=== PATIENT | female | born 1995 | race Caucasian/White ===

== ENCOUNTER 2023-07-25 19:30 | Emergency (ER) | payer OTHER ==
[2023-07-25 19:35] VITALS: TEMP 97.2
[2023-07-25 20:19] VITALS: BP 113/79; RESP 18
[2023-07-25] MEDS ORDERED: TORAdol 30 mg Injection IM ONE (20:22)
[2023-07-25] MEDS ORDERED: Vibramycin 100 MG PO ONE (20:23)
[2023-07-25] MEDS ORDERED: TORAdol 30 mg Injection ONE (20:26)
[2023-07-25] MEDS ORDERED: Vibramycin 100 MG ONE (20:26)
--- NOTE | 2023-07-25 20:29 | ERPHSYRPT ---
- History of Present Illness Source: patient Exam Limitations: no limitations Patient Subjective Stated Complaint: pain to rt armit, feels like a knot there Triage Nursing Assessment: pt ambulated into ER without diff. Pt alert and oriented x4, pt c/o rt armpit pain which began on 07/21/23. Pt has a hard knot area under the rt armpit, Appears to be quarter sized, under the skin, no drainage noted. Physician History: 28 yo WF w R axillary mass x 1 wk. Pain is moderate. She denies fever/pus/injury and has never had a similar lesion. Breast mass/cough/coryza/ST are all denied. Timing/Duration: other (1 week) Quality: painful Severity: moderate Location: axillary (R) Possible Causes: no cause identified Associated Symptoms: denies symptoms Allergies/Adverse Reactions: bee pollen Allergy (Severe, Verified 07/25/23 19:43) Anaphylactic Reaction peach Adverse Reaction (Severe, Verified 07/25/23 19:43) Vomiting Penicillins Adverse Reaction (Intermediate, Verified 07/25/23 19:43) Hives Hx Tetanus, Diphtheria Vaccination/Date Given: Yes Hx Influenza Vaccination/Date Given: No Hx Pneumococcal Vaccination/Date Given: No Travel Risk - International Travel Have you traveled outside of the country in past 3 weeks: No - Coronavirus Screening Are you exhibiting any of the following symptoms?: No Close contact with a COVID-19 positive Pt in past 14-21 Days: No - Vaccine Status Have you recieved a Covid-19 vaccination: No - Review of Systems Constitutional: No Symptoms Eyes: No Symptoms Ears, Nose, & Throat: No Symptoms Respiratory: No Symptoms Cardiac: No Symptoms Abdominal/Gastrointestinal: No Symptoms Genitourinary Symptoms: No Symptoms Musculoskeletal: No Symptoms Neurological: No Symptoms Psychological: No Symptoms Endocrine: No Symptoms Hematologic/Lymphatic: No Symptoms Immunological/Allergic: No Symptoms - Past Medical History Pertinent Past Medical History: Yes Neurological History: No Pertinent History ENT History: No Pertinent History Cardiac History: No Pertinent History Respiratory History: No Pertinent History Endocrine Medical History: No Pertinent History Musculoskeletal History: Other GI Medical History: Other History: No Pertinent History Psycho-Social History: Depression Female Reproductive Disorders: No Pertinent History Other Medical History: appendix. lt index finger cut off and sewn back on - Past Surgical History Past Surgical History: Yes Neuro Surgical History: No Pertinent History Cardiac: No Pertinent History Respiratory: No Pertinent History Gastrointestinal: Appendectomy Genitourinary: No Pertinent History Musculoskeletal: Other Female Surgical History: No Pertinent History Other Surgical History: left index finger sewn back on - Social History Smoking Status: Never smoker Exposure to second hand smoke: No Drug Use: none Patient Lives Alone: No - Female History Hx Last Menstrual Period: 07/23/23 Hx Now: No - Nursing Vital Signs Nursing Vital Signs: Initial Vital Signs Temperature 97.2 F 07/25/23 19:34 Pulse Rate 103 H 07/25/23 19:34 Respiratory Rate 20 07/25/23 19:34 Blood Pressure 156/111 07/25/23 19:34 O2 Sat by Pulse Oximetry 100 07/25/23 19:34 Pain Scale Pain Intensity 7 tachy/hypertensive - Physical Exam General Appearance: no apparent distress Eye Exam: PERRL/EOMI, eyes nml inspection Ears, Nose, Throat Exam: normal ENT inspection, TMs normal, pharynx normal, moist mucous membranes Neck Exam: normal inspection, non-tender, supple, full range of motion, No meningismus, No mass, No Brudzinski, No Kernig's Respiratory Exam: normal breath sounds, lungs clear, airway intact Cardiovascular Exam: tachycardia, capillary refill <2 sec, No murmur Gastrointestinal/Abdomen Exam: soft, normal bowel sounds Back Exam: normal inspection, normal range of motion Extremity Exam: other (Small SQ sessile mass R axillary area/No erythema/TTP/No exudate) Neurologic Exam: alert, oriented x 3, cooperative, 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, normal mood/affect, nml cerebellar function, nml station & gait, sensation nml Skin Exam: normal color, warm, dry Lymphatic Exam: axilla node tender (R) SpO2 Interpretation: normal SpO2: 99 O2 Delivery: Room Air - Course Nursing assessment & vital signs reviewed: Yes Ordered Tests: Medication Summary Discontinued Medications Generic Name Dose Route Start Last Admin Trade Name Freq PRN Reason Stop Dose Admin Doxycycline Hyclate 100 mg 07/25/23 20:23 07/25/23 20:31 Doxycycline Hyclate 100 Mg Tablet PO 07/25/23 20:24 100 mg STAT ONE Administration Doxycycline Hyclate Confirm 07/25/23 20:26 Doxycycline Hyclate 100 Mg Tablet Administered 07/25/23 20:27 Dose 100 mg .ROUTE .STK-MED ONE Ketorolac Tromethamine 30 mg 07/25/23 20:22 07/25/23 20:31 Ketorolac Tromethamine 30 Mg/Ml Inj IM 07/25/23 20:23 30 mg STAT ONE Administration Ketorolac Tromethamine Confirm 07/25/23 20:26 Ketorolac Tromethamine 30 Mg/Ml Inj Administered 07/25/23 20:27 Dose 30 mg .ROUTE .STK-MED ONE - Progress Progress Note: 07/25/23 22:25 Nursing note and vital signs reviewed No food or housing insecurities noted 07/25/23 22:26 Lesion most likely an inflamed lymph node w lesser probability of an abscess Will doxycycline and have pt follow up with PCP Pt instructed to return to ER for increasing pain/increasing size/increasing erythema/temperature greater than 100.5 BP/Hr decreased before discharge. Counseled pt/family regarding: diagnosis, need for follow-up Medical Desision Making - Risk of complications The pt has a mod risk of morbidity or mortality based on: Need for prescription drug management - Departure Departure Disposition: Home Clinical Impression: Lymphadenopathy Condition: Stable Critical Care Time: No Referrals: DOCTOR,NO FAMILY [Primary Care Provider] - Follow up/PCP as directed Instructions: Lymphadenitis (DC) Additional Instructions: Start Doxycycline twice a day Follow up with your family MD on Friday Return to ER for increasing pain/swelling/redness/temperature greater than 100.5 Prescriptions: Doxycycline Monohydrate 100 mg PO BID #14 cap
[2023-07-25 20:36] VITALS: PULSE 83
[2023-07-25 22:29] VITALS: O2SAT 99
== END 2023-07-25 20:50 | disposition home or self-care (01) ==
LOC: ED 19:30
DX: R59.0 Localized enlarged lymph nodes (principal); Z28.310 Unvaccinated for COVID-19
CPT/HCPCS: 96372; 99283; J1885; A9270-GY

== ENCOUNTER 2023-12-11 18:51 | Emergency (ER) | payer OTHER ==
[2023-12-11 19:14] VITALS: RESP 18; TEMP 97
[2023-12-11] MEDS ORDERED: Sodium Chloride 0.9% 1000 ML 1,000 ML IV STA (19:28)
--- NOTE | 2023-12-11 19:49 | ERPHSYRPT ---
- History of Present Illness Time Seen by Provider: 12/11/23 19:00 Historian: patient Exam Limitations: no limitations Patient Subjective Stated Complaint: pt here for vaginal bleeding for 2 days heavy now, she states having clots and heavy bleeding today, pt had a stillborn at 17weeks in march of last year Triage Nursing Assessment: pt alert, tearful at times, walked in resp easy, skin w/d/p. abd soft moves all ext well Physician History: 28 years old female presented in the ER with chief complaint of heavy menstrual bleeding for the last 3 days. Patient reports her cycle has been really having for the last 8 months since she had a stillbirth. Earlier she passed couple of clots of the size of a small faced. Became lightheaded, dizzy and threw up once. She is complaining of some suprapubic area discomfort. No fever or chills reported. Denies any chest pain palpitations or shortness of breath. Not taking any blood thinners. Allergies/Adverse Reactions: bee pollen Allergy (Severe, Verified 12/11/23 19:04) Anaphylactic Reaction iodine Allergy (Verified 12/11/23 19:04) peach Adverse Reaction (Severe, Verified 12/11/23 19:04) Vomiting Penicillins Adverse Reaction (Intermediate, Verified 12/11/23 19:04) Hives Hx Tetanus, Diphtheria Vaccination/Date Given: Yes Hx Influenza Vaccination/Date Given: No Hx Pneumococcal Vaccination/Date Given: No Immunizations Up to Date: Yes Travel Risk - International Travel Have you traveled outside of the country in past 3 weeks: No - Coronavirus Screening Are you exhibiting any of the following symptoms?: No Close contact with a COVID-19 positive Pt in past 14-21 Days: No - Vaccine Status Have you recieved a Covid-19 vaccination: No - Review of Systems Constitutional: No Symptoms Eyes: No Symptoms Ears, Nose, & Throat: No Symptoms Respiratory: No Symptoms Cardiac: No Symptoms Abdominal/Gastrointestinal: Abdominal Pain Genitourinary Symptoms: Vaginal Bleeding Musculoskeletal: No Symptoms Skin: No Symptoms Neurological: Dizziness Endocrine: No Symptoms Hematologic/Lymphatic: No Symptoms Immunological/Allergic: No Symptoms - Past Medical History Pertinent Past Medical History: Yes Neurological History: No Pertinent History ENT History: No Pertinent History Cardiac History: No Pertinent History Respiratory History: No Pertinent History Endocrine Medical History: No Pertinent History Musculoskeletal History: Other GI Medical History: Other History: No Pertinent History Psycho-Social History: Depression Female Reproductive Disorders: No Pertinent History Other Medical History: appendix. lt index finger cut off and sewn back on,stillborn in march 2023 - Past Surgical History Past Surgical History: Yes Neuro Surgical History: No Pertinent History Cardiac: No Pertinent History Respiratory: No Pertinent History Gastrointestinal: Appendectomy Genitourinary: No Pertinent History Musculoskeletal: Other Female Surgical History: No Pertinent History Other Surgical History: left index finger sewn back on - Social History Smoking Status: Never smoker Exposure to second hand smoke: No Drug Use: none Patient Lives Alone: No - Female History Hx Last Menstrual Period: now Hx Now: No - Nursing Vital Signs Nursing Vital Signs: Initial Vital Signs Temperature 97.0 F 12/11/23 19:13 Pulse Rate 83 12/11/23 19:13 Respiratory Rate 18 12/11/23 19:13 Blood Pressure 142/86 12/11/23 19:13 O2 Sat by Pulse Oximetry 99 12/11/23 19:13 Pain Scale Pain Intensity 2 - Physical Exam General Appearance: no apparent distress, alert Eye Exam: PERRL/EOMI Ears, Nose, Throat Exam: moist mucous membranes Neck Exam: normal inspection, non-tender, supple, full range of motion Respiratory Exam: normal breath sounds, lungs clear Cardiovascular Exam: regular rate/rhythm, normal heart sounds Gastrointestinal/Abdomen Exam: soft, normal bowel sounds, tenderness (Minimal suprapubic tenderness. No right or left lower quadrant tenderness.) Back Exam: normal inspection, normal range of motion Extremity Exam: normal inspection, normal range of motion Neurologic Exam: alert, oriented x 3, cooperative, normal mood/affect, sensation nml, No motor deficits Skin Exam: normal color SpO2 Interpretation: normal SpO2: 99 O2 Delivery: Room Air Ordered Tests: Active Orders 24 hr Category Date Time Status IV Insertion STAT Care 12/11/23 19:28 Active CBC W DIFF Stat Lab 12/11/23 19:45 Completed CMP Stat Lab 12/11/23 19:45 Completed HCG, Quantitative (Inhouse) Stat Lab 12/11/23 19:45 Completed UA W/RFX UR CULTURE Stat Lab 12/11/23 19:28 Ordered Medication Summary Discontinued Medications Generic Name Dose Route Start Last Admin Trade Name Freq PRN Reason Stop Dose Admin Sodium Chloride 1,000 mls @ 999 mls/hr 12/11/23 19:28 12/11/23 21:21 Sodium Chloride 0.9% 1000 Ml IV 12/11/23 20:28 Infused .Q1H1M STA Infusion Sodium Chloride Confirm 12/11/23 20:07 Sodium Chloride 0.9% 1000 Ml Administered 12/11/23 20:08 Dose 1,000 mls @ ud .ROUTE .STK-MED ONE Lab/Rad Data: Laboratory Result Diagrams 12/11/23 19:45 12/11/23 19:45 Laboratory Results 12/11/23 12/11/23 Range/Units 19:45 19:45 WBC 6.5 (4.0-10.5) x10^3/uL RBC 5.02 (4.1-5.4) x10^6/uL Hgb 13.2 (12.0-16.0) g/dL Hct 40.7 (35-47) % MCV 81.1 (78-100) fL MCH 26.3 (26-32) pg MCHC 32.4 (32-36) g/dL RDW 13.2 (11.5-14.0) % Plt Count 290 (150-450) x10^3/uL MPV 10.1 (7.5-11.0) fL Gran % 55.3 (36.0-66.0) % Immature Gran % (Auto) 0.5 H (0.00-0.4) % Nucleat RBC Rel Count 0.0 (0.00-0.1) % Eos # (Auto) 0.07 (0-0.5) x10^3/uL Immature Gran # (Auto) 0.03 (0.00-0.03) x10^3u/L Absolute Lymphs (auto) 2.32 (1.0-4.6) x10^3/uL Absolute Monos (auto) 0.46 (0.0-1.3) x10^3/uL Absolute Nucleated RBC 0.00 (0.00-0.01) x10^3u/L Lymphocytes % 35.5 (24.0-44.0) % Monocytes % 7.0 (0.0-12.0) % Eosinophils % 1.1 (0.00-5.0) % Basophils % 0.6 (0.0-0.4) % Absolute Granulocytes 3.62 (1.4-6.9) x10^3/uL Basophils # 0.04 (0-0.4) x10^3/uL Sodium 139 (137-145) mmol/L Potassium 3.3 L (3.5-5.1) mmol/L Chloride 106 (98-107) mmol/L Carbon Dioxide 21 L (22-30) mmol/L Anion Gap 14.5 (5-15) MEQ/L BUN 9 (7-17) mg/dL Creatinine 0.67 (0.52-1.04) mg/dL Estimated GFR 120.5 ML/MIN Glucose 93 (74-106) mg/dL Calcium 9.7 (8.4-10.2) mg/dL Total Bilirubin 0.70 (0.2-1.3) mg/dL AST 22 (14-36) U/L ALT 15 (0-35) U/L Alkaline Phosphatase 82 (38-126) U/L Serum Total Protein 8.3 H (6.3-8.2) g/dL Albumin 4.5 (3.5-5.0) g/dL Beta HCG, Quant < 2.39 mIU/ml - Progress Progress Note: 12/11/23 21:24 28 years old is evaluated in ER for heavy menstrual bleed. Patient is not in any distress. She is given fluids. Workup showed hemoglobin of 14, fairly unremarkable chemistries. Beta-hCG quant negative. I have given her Provera in here and will continue to go home and recommended outpatient follow-up. Patient has minimal suprapubic tenderness. Patient does not want to wait for the urine and wants to go home. She is not in any distress. Stable for discharge. Counseled pt/family regarding: lab results, diagnosis, need for follow-up Medical Desision Making - Diagnostic Testing Diagnostic test were ordered, analyzed, and reviewed by me: Yes - Risk of complications The pt has a mod risk of morbidity or mortality based on: Need for prescription drug management - Departure Departure Disposition: Home Clinical Impression: Menorrhagia with regular cycle Condition: Stable Critical Care Time: No Referrals: DOCTOR,NO FAMILY [Primary Care Provider] - Follow up/PCP as directed ARUNA SEALS DO [COURTESY STAFF] - Follow up/PCP as directed (Call in morning for appointment for reevaluation) Instructions: Heavy Periods (DC) Additional Instructions: Drink plenty of fluids to keep yourself well-hydrated. Follow-up with your for reevaluation. Return to ER for worsening of bleeding lightheadedness, chest pain palpitations or shortness of breath etc. Prescriptions: Medroxyprogesterone Acetate [Provera] 5 mg PO DAILY 5 Days #5 tablet
[2023-12-11] MEDS ORDERED: Sodium Chloride 0.9% 1000 ML 1,000 ML ONE (20:07)
[2023-12-11 20:14] LABS: Absolute Neutrophil Ct (ANC) 3.62 x10^3/uL (1.4-6.9); BASOPHIL % 0.6 % (0.0-0.4); Basophil (Absolute #) 0.04 x10^3/uL (0-0.4); Eosinophil % 1.1 % (0.00-5.0); Eosinophil (Absolute #) 0.07 x10^3/uL (0-0.5); Hematocrit 40.7 % (35-47); Hemoglobin 13.2 g/dL (12.0-16.0); IMMATURE GRAN # 0.03 x10^3u/L (0.00-0.03); IMMATURE GRAN % 0.5 % (0.00-0.4); Lymphocyte (Absolute #) 2.32 x10^3/uL (1.0-4.6); Lymphocytes % 35.5 % (24.0-44.0); Mean Cell Volume 81.1 fL (78-100); Mean Corpuscular Hemoglobin 26.3 pg (26-32); Mean Corpuscular Hgb Concent. 32.4 g/dL (32-36); Mean Platelet Volume 10.1 fL (7.5-11.0); Monocyte (Absolute #) 0.46 x10^3/uL (0.0-1.3); Neutrophil % 55.3 % (36.0-66.0); Platelet Count 290 x10^3/uL (150-450); Red Blood Count 5.02 x10^6/uL (4.1-5.4); Red Cell Distribution Width 13.2 % (11.5-14.0); White Blood Count 6.5 x10^3/uL (4.0-10.5)
[2023-12-11 20:50] LABS: ALBUMIN 4.5 g/dL (3.5-5.0); ALKALINE PHOSPHATASE 82 U/L (38-126); ANION GAP 14.5 MEQ/L (5-15); BLOOD UREA NITROGEN 9 mg/dL (7-17); CHLORIDE 106 mmol/L (98-107); Calcium 9.7 mg/dL (8.4-10.2); Carbon Dioxide 21 mmol/L (22-30); Creatinine 1 0.67 mg/dL (0.52-1.04); EST GLOMERULAR FILTRATION RATE 120.5 ML/MIN; Glucose 93 mg/dL (74-106); HCG, Quantitative (Inhouse) < 2.39 mIU/ml; Potassium 3.3 mmol/L (3.5-5.1); SGOT/AST 22 U/L (14-36); SGPT/ALT 15 U/L (0-35); SODIUM 139 mmol/L (137-145); Total Protein 8.3 g/dL (6.3-8.2)
[2023-12-11] MEDS ORDERED: PROVERA10 MG PO STA (21:23)
[2023-12-11 21:27] VITALS: O2SAT 99
[2023-12-11 22:12] VITALS: BP 114/79; PULSE 80
== END 2023-12-11 22:15 | disposition home or self-care (01) ==
LOC: ED 18:51
DX: N92.0 Excessive and frequent menstruation with regular cycle (principal); R42 Dizziness and giddiness; R10.2 Pelvic and perineal pain; Z28.310 Unvaccinated for COVID-19
CPT/HCPCS: 36000; 36415; 80053; 84702; 85025; 99283; A9270-GY

== ENCOUNTER 2023-12-26 12:43 | Emergency (ER) | payer OTHER ==
[2023-12-26 13:03] VITALS: TEMP 97.3; O2SAT 100
--- NOTE | 2023-12-26 13:57 | ERPHSYRPT ---
- History of Present Illness Time Seen by Provider: 12/26/23 13:36 Source: patient Patient Subjective Stated Complaint: Vaginal bleeding Triage Nursing Assessment: Patient ambulated back to ED and transferred self to bed. Patient A+O X.3 Patient's skin pink, warm and dry. Patient states she is having vaginal bleeding that started this am. Patient states 2 weeks ago she s tarted having vaginal bleeding with large clots and was seen in ER and given Provera and referred to OBGYN. Patient followed up and yesterday had a biopsy of uterus and was not bleeding before or after procedure until this am. Patient denies pain or discomfort. Physician History: The patient had a uterine biopsy yesterday. She was doing well. She slept overnight. She woke up with a pool of blood. She was sent over here by Dr. Cazares. Timing/Duration: today Allergies/Adverse Reactions: bee pollen Allergy (Severe, Verified 12/26/23 12:55) Anaphylactic Reaction iodine Allergy (Verified 12/26/23 12:55) peach Adverse Reaction (Severe, Verified 12/26/23 12:55) Vomiting Penicillins Adverse Reaction (Intermediate, Verified 12/26/23 12:55) Hives Hx Tetanus, Diphtheria Vaccination/Date Given: Yes Hx Influenza Vaccination/Date Given: No Hx Pneumococcal Vaccination/Date Given: No Travel Risk - International Travel Have you traveled outside of the country in past 3 weeks: No - Coronavirus Screening Are you exhibiting any of the following symptoms?: No Close contact with a COVID-19 positive Pt in past 14-21 Days: No - Vaccine Status Have you recieved a Covid-19 vaccination: No - Review of Systems Constitutional: No Fever, No Chills Eyes: No Symptoms Ears, Nose, & Throat: No Symptoms Respiratory: No Cough, No Dyspnea Cardiac: No Chest Pain, No Edema, No Syncope Abdominal/Gastrointestinal: No Abdominal Pain, No Nausea, No Vomiting, No Diarrhea Genitourinary Symptoms: Vaginal Bleeding, No Dysuria Musculoskeletal: No Back Pain, No Neck Pain Skin: No Rash Neurological: No Dizziness, No Focal Weakness, No Sensory Changes Psychological: No Symptoms Endocrine: No Symptoms All Other Systems: Reviewed and Negative - Past Medical History Pertinent Past Medical History: Yes Neurological History: No Pertinent History ENT History: No Pertinent History Cardiac History: No Pertinent History Respiratory History: No Pertinent History Endocrine Medical History: No Pertinent History Musculoskeletal History: Other GI Medical History: Other History: No Pertinent History Psycho-Social History: Depression Female Reproductive Disorders: No Pertinent History Other Medical History: appendix. lt index finger cut off and sewn back on,stillborn in march 2023 - Past Surgical History Past Surgical History: Yes Neuro Surgical History: No Pertinent History Cardiac: No Pertinent History Respiratory: No Pertinent History Gastrointestinal: Appendectomy Genitourinary: No Pertinent History Musculoskeletal: Other Female Surgical History: No Pertinent History Other Surgical History: left index finger sewn back on - Social History Smoking Status: Never smoker Exposure to second hand smoke: No Drug Use: none Patient Lives Alone: No - Female History Hx Last Menstrual Period: bleeding Hx Now: No - Nursing Vital Signs Nursing Vital Signs: Initial Vital Signs Temperature 97.3 F 12/26/23 12:58 Pulse Rate 103 H 12/26/23 12:58 Respiratory Rate 18 12/26/23 12:58 Blood Pressure 143/114 12/26/23 12:58 O2 Sat by Pulse Oximetry 100 12/26/23 12:58 Pain Scale Pain Intensity 0 - Physical Exam General Appearance: no apparent distress, alert Eye Exam: PERRL/EOMI, eyes nml inspection Ears, Nose, Throat Exam: normal ENT inspection, TMs normal, pharynx normal, moist mucous membranes Neck Exam: normal inspection, non-tender, supple, full range of motion Respiratory Exam: normal breath sounds, lungs clear, No respiratory distress Cardiovascular Exam: regular rate/rhythm, normal heart sounds, normal peripheral pulses Gastrointestinal/Abdomen Exam: soft, No tenderness, No mass Back Exam: normal inspection, normal range of motion, No CVA tenderness, No vertebral tenderness Extremity Exam: normal inspection, normal range of motion, pelvis stable Neurologic Exam: alert, oriented x 3, cooperative, 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, normal mood/affect, sensation nml, No motor deficits Skin Exam: normal color, warm, dry Lymphatic Exam: No adenopathy SpO2 Interpretation: normal SpO2: 100 O2 Delivery: Room Air - Course Nursing assessment & vital signs reviewed: Yes Ordered Tests: Active Orders 24 hr Category Date Time Status IV Insertion STAT Care 12/26/23 13:44 Active BMP Stat Lab 12/26/23 13:00 Completed CBC W DIFF Stat Lab 12/26/23 13:00 Completed HCG, Quantitative (Inhouse) Stat Lab 12/26/23 14:43 Ordered TSH [TSH, 3RD Generation] Stat Lab 12/26/23 15:00 Ordered UA W/RFX UR CULTURE Stat Lab 12/26/23 14:49 Received Urine Triage Profile Stat Lab 12/26/23 14:49 Received Medication Summary Generic Name Dose Route Start Last Admin Trade Name Michelle PRN Reason Stop Dose Admin Sodium Chloride 1,000 mls @ 999 mls/hr 12/26/23 14:05 12/26/23 14:44 Sodium Chloride 0.9% 1000 Ml IV 12/26/23 15:05 999 mls/hr .Q1H1M STA Administration TRANEXAMIC ACID IN NACL,ISO-OS 1,000 mg in 100 mls @ 600 mls/hr 12/26/23 15:00 Tranexamic 1,000 Mg/100ml-Nacl IV 12/26/23 15:09 1500 RONN Discontinued Medications Generic Name Dose Route Start Last Admin Trade Name Michelle PRN Reason Stop Dose Admin Sodium Chloride Confirm 12/26/23 14:42 Sodium Chloride 0.9% 1000 Ml Administered 12/26/23 14:43 Dose 1,000 mls @ ud .ROUTE .[facility]-MED ONE Lab/Rad Data: Laboratory Result Diagrams 12/26/23 13:00 12/26/23 13:00 Laboratory Results 12/26/23 12/26/23 Range/Units 13:00 13:00 WBC 6.4 (4.0-10.5) x10^3/uL RBC 5.20 (4.1-5.4) x10^6/uL Hgb 13.6 (12.0-16.0) g/dL Hct 42.2 (35-47) % MCV 81.2 (78-100) fL MCH 26.2 (26-32) pg MCHC 32.2 (32-36) g/dL RDW 13.1 (11.5-14.0) % Plt Count 345 (150-450) x10^3/uL MPV 9.9 (7.5-11.0) fL Gran % 48.7 (36.0-66.0) % Immature Gran % (Auto) 0.2 (0.00-0.4) % Nucleat RBC Rel Count 0.0 (0.00-0.1) % Eos # (Auto) 0.14 (0-0.5) x10^3/uL Immature Gran # (Auto) 0.01 (0.00-0.03) x10^3u/L Absolute Lymphs (auto) 2.56 (1.0-4.6) x10^3/uL Absolute Monos (auto) 0.50 (0.0-1.3) x10^3/uL Absolute Nucleated RBC 0.00 (0.00-0.01) x10^3u/L Lymphocytes % 40.2 (24.0-44.0) % Monocytes % 7.8 (0.0-12.0) % Eosinophils % 2.2 (0.00-5.0) % Basophils % 0.9 (0.0-0.4) % Absolute Granulocytes 3.10 (1.4-6.9) x10^3/uL Basophils # 0.06 (0-0.4) x10^3/uL Sodium 139 (137-145) mmol/L Potassium 3.7 (3.5-5.1) mmol/L Chloride 106 (98-107) mmol/L Carbon Dioxide 23 (22-30) mmol/L Anion Gap 13.8 (5-15) MEQ/L BUN 14 (7-17) mg/dL Creatinine 0.80 (0.52-1.04) mg/dL Estimated GFR 101.6 ML/MIN Glucose 106 (74-106) mg/dL Calcium 9.7 (8.4-10.2) mg/dL - Progress Progress Note: 12/26/23 13:57 Dysfunctional uterine bleeding/vaginal bleeding status post procedure I did speak with Dr. Cazares. The patient will be given IV fluids. The patient be given TXA. The patient will be evaluated by Dr. Cazares here in the emergency room. She is hemodynamically stable. I do not feel the blood pressure and pulse were accurate. Will give IV fluids. The patient appears alert in no acute distress. She is not diaphoretic or pale. The patient will be reevaluated with a CBC as well as IV fluids. The patient will be given TXA. 12/26/23 14:22 The patient at this point has a normal CBC and blood work. The patient was given TXA. The patient will be discharged on TXA. Dr. Rodriguez will also evaluate the patient here in the emergency room. She will follow-up with the patient in clinic. 12/26/23 15:01 Patient was evaluated by NETWORK DESK[employer] SUPPORT SPECIALIST. There was no evidence of significant bleeding. They did not want to start TXA here in the emergency room. The patient will be discharged and follow-up in clinic. We are adding on a TSH. - Departure Departure Disposition: Home Clinical Impression: Menorrhagia with regular cycle Condition: Good Critical Care Time: No Referrals: DOCTOR,NO FAMILY [Primary Care Provider] - Follow up/PCP as directed Instructions: Heavy periods, Bleeding Between Periods Additional Instructions: Thank you for choosing our Emergency Department for your healthcare! Please take your medicines prescribed as directed and be assured that you follow up with the physician provided or your PCP in the next 1-2 days to assure you are improving. All medical problems cannot be reasonably diagnosed in your ED visit today. Return for any changes or concerns, including if your condition does not improve or you are unable to obtain follow-up. Some final results, including radiology reports, do not return the same day, but are available on the patient portal or can be obtained through your PCP Follow-up with your NETWORK DESKTOP SUPPORT SPECIALIST in clinic as directed by Dr. Cazares. Start the TXA if you start to bleed again. Prescriptions: Tranexamic Acid See Rx Instructions .ROUTE .COMPLEX #12 tablet
[2023-12-26 14:00] LABS: BASOPHIL % 0.9 % (0.0-0.4); Basophil (Absolute #) 0.06 x10^3/uL (0-0.4); Eosinophil % 2.2 % (0.00-5.0); Eosinophil (Absolute #) 0.14 x10^3/uL (0-0.5); Hematocrit 42.2 % (35-47); Hemoglobin 13.6 g/dL (12.0-16.0); IMMATURE GRAN # 0.01 x10^3u/L (0.00-0.03); IMMATURE GRAN % 0.2 % (0.00-0.4); Lymphocyte (Absolute #) 2.56 x10^3/uL (1.0-4.6); Lymphocytes % 40.2 % (24.0-44.0); Mean Cell Volume 81.2 fL (78-100); Mean Corpuscular Hemoglobin 26.2 pg (26-32); Mean Corpuscular Hgb Concent. 32.2 g/dL (32-36); Mean Platelet Volume 9.9 fL (7.5-11.0); Monocytes % 7.8 % (0.0-12.0); Neutrophil % 48.7 % (36.0-66.0); Platelet Count 345 x10^3/uL (150-450); Red Cell Distribution Width 13.1 % (11.5-14.0); White Blood Count 6.4 x10^3/uL (4.0-10.5)
[2023-12-26] MEDS ORDERED: TRANEXAMIC ACID 1000 MG/10 ML 1,000 MG in Sodium Chloride 0.9% 100 ML IV ONE (14:05)
[2023-12-26] MEDS ORDERED: Sodium Chloride 0.9% 1000 ML 1,000 ML IV STA (14:05)
[2023-12-26 14:08] LABS: ANION GAP 13.8 MEQ/L (5-15); Calcium 9.7 mg/dL (8.4-10.2); Creatinine 1 0.8 mg/dL (0.52-1.04); EST GLOMERULAR FILTRATION RATE 101.6 ML/MIN; Potassium 3.7 mmol/L (3.5-5.1)
[2023-12-26 14:13] VITALS: BP 124/83; PULSE 76; RESP 18
[2023-12-26] MEDS ORDERED: Sodium Chloride 0.9% 1000 ML 1,000 ML ONE (14:42)
--- NOTE | 2023-12-26 14:53 | PCM.CONS ---
History of Present Illness - Reason for Consult Chief Complaint: bleeding Date of Consultation Date: 12/26/23 Reason for Consult: vaginal bleeding Requesting Provider: Dr De Santiago Consulting Provider: HAILEY FLOYD MD History of Present Illness: is a 28 year old female. 28 y/o multip with periods spacing out this past year intermittently and resultant heavy bleeding episodes recently. Had endometrial biopsy on 12/25 then went home and did fine through the evening. Took a nap yesterday evening from around 4-8pm then could not sleep until 7-9am this morning. Reports awakening with a "hospital pad, entirely soaked" from vaginal bleeding in just her 2 hours of sleeping but not really soaking any pads since then. Came to ER to be checked out after calling clinic which had already closed for the day. - Review of Systems Constitutional: Other (insomnia) Genitourinary Symptoms: Vaginal Bleeding, Other (cramping) Medications & Allergies Home Medications: Home Medication List Medroxyprogesterone Acetate [Provera] 5 mg PO DAILY 5 Days #5 tablet 12/11/23 [Rx Confirmed 12/26/23] Tranexamic Acid See Rx Instructions .ROUTE .COMPLEX #12 tablet 12/26/23 [Rx] Allergies/Adverse Reactions: Allergies Allergy/AdvReac Type Severity Reaction Status Date / Time bee pollen Allergy Severe Anaphylactic Verified 12/26/23 12:55 Reaction iodine Allergy Verified 12/26/23 12:55 peach AdvReac Severe Vomiting Verified 12/26/23 12:55 Penicillins AdvReac Intermediate Hives Verified 12/26/23 12:55 - Past Medical History Past Medical History: Yes Neurological History: No Pertinent History ENT History: No Pertinent History Cardiac History: No Pertinent History Respiratory History: No Pertinent History Endocrine Medical History: No Pertinent History Musculoskelatal History: Other GI Medical History: Other History: No Pertinent History Pyscho-Social History: Depression Reproductive Disorders: No Pertinent History Comment: appendix. lt index finger cut off and sewn back on,stillborn in march 2023 - Female History Hx Last Menstrual Period: bleeding Are you now?: No - Past Surgical History Past Surgical History: Yes Neuro Surgical History: No Pertinent History Cardiac History: No Pertinent History Respiratory Surgery: No Pertinent History GI Surgical History: Appendectomy Genitourinary Surgical Hx: No Pertinent History Musculskeletal Surgical Hx: Other Female Surgical History: No Pertinent History Other Surgical History: left index finger sewn back on - Social History Smoking Status: Never smoker Exposure to second hand smoke: No Alcohol: Rarely Drug Use: none - Physical Exam Vital Signs: Vital Signs - 24 hr Temp Pulse Resp BP Pulse Ox 12/26/23 14:32 100 12/26/23 14:08 76 18 124/83 100 12/26/23 13:30 82 15 119/81 99 12/26/23 13:00 92 H 22 140/106 100 12/26/23 12:58 97.3 F 103 H 18 143/114 100 General Appearance: no apparent distress, alert Neurologic Exam: alert, other (answers did not match questions, speech pressured) Eye Exam: PERRL/EOMI Ears, Nose, Throat Exam: normal ENT inspection Neck Exam: normal inspection Respiratory Exam: No respiratory distress Cardiovascular Exam: regular rate/rhythm Gastrointestinal/Abdomen Exam: soft, No distention Pelvic Exam: not done Extremity Exam: normal inspection Skin Exam: normal color Results - Labs Lab/Micro Results: Lab Results-Last 24 Hours 12/26/23 12/26/23 Range/Units 13:00 13:00 WBC 6.4 (4.0-10.5) x10^3/uL RBC 5.20 (4.1-5.4) x10^6/uL Hgb 13.6 (12.0-16.0) g/dL Hct 42.2 (35-47) % MCV 81.2 (78-100) fL MCH 26.2 (26-32) pg MCHC 32.2 (32-36) g/dL RDW 13.1 (11.5-14.0) % Plt Count 345 (150-450) x10^3/uL MPV 9.9 (7.5-11.0) fL Gran % 48.7 (36.0-66.0) % Immature Gran % (Auto) 0.2 (0.00-0.4) % Nucleat RBC Rel Count 0.0 (0.00-0.1) % Eos # (Auto) 0.14 (0-0.5) x10^3/uL Immature Gran # (Auto) 0.01 (0.00-0.03) x10^3u/L Absolute Lymphs (auto) 2.56 (1.0-4.6) x10^3/uL Absolute Monos (auto) 0.50 (0.0-1.3) x10^3/uL Absolute Nucleated RBC 0.00 (0.00-0.01) x10^3u/L Lymphocytes % 40.2 (24.0-44.0) % Monocytes % 7.8 (0.0-12.0) % Eosinophils % 2.2 (0.00-5.0) % Basophils % 0.9 (0.0-0.4) % Absolute Granulocytes 3.10 (1.4-6.9) x10^3/uL Basophils # 0.06 (0-0.4) x10^3/uL Sodium 139 (137-145) mmol/L Potassium 3.7 (3.5-5.1) mmol/L Chloride 106 (98-107) mmol/L Carbon Dioxide 23 (22-30) mmol/L Anion Gap 13.8 (5-15) MEQ/L BUN 14 (7-17) mg/dL Creatinine 0.80 (0.52-1.04) mg/dL Estimated GFR 101.6 ML/MIN Glucose 106 (74-106) mg/dL Calcium 9.7 (8.4-10.2) mg/dL Assessment/Plan (1) Menorrhagia with irregular cycle Current Visit: Yes Status: Acute Assessment & Plan: Pt reported heavy bleeding episode this morning after insomnia all night. Hemodynamically stable this morning with normal Hct and labs. Will add TSH, HCG, and urine drug screen given patient's behavior during evaluation. TXA discussed but not warranted given clinical picture and no demonstrable bleeding. Recent US reviewed; repeat not deemed necessary given clinical picture today. To f/u in clinic next week for EMB results and ongoing management. Code(s): N92.1 - EXCESSIVE AND FREQUENT MENSTRUATION WITH IRREGULAR CYCLE
[2023-12-26] MEDS ORDERED: TRANEXAMIC 1,000 MG/100ML-NACL 1,000 MG/100 ML PIGGYBACK IV SCH (15:00)
[2023-12-26 15:05] LABS: Appearance Clear (Clear); Bacteria None Seen /HPF (None Seen); Bilirubin Negative (Negative); Blood Large (Negative); Epithelial Cells None Seen /HPF (None Seen); Glucose, Urine Negative (Negative); Hyaline Casts NONE SEEN /LPF (0-2); Ketones Negative (Negative); Leukocyte Esterase Small (Negative); Nitrite Negative (Negative); Protein,Urine Dip 30 (Negative); RBC >100 /HPF (0-5); Specific Gravity <=1.005 (1.005-1.030); Urobilinogen 0.2 mg/dL (0.2)
[2023-12-26 15:07] LABS: ADD URINE CULTURE? YES (NO)
[2023-12-26 15:16] LABS: Amphetamine,Urine NEGATIVE (NEGATIVE); Barbiturate,Urine NEGATIVE (NEGATIVE); Benzodiazepine,Urine NEGATIVE (NEGATIVE); Cocaine,Urine NEGATIVE (NEGATIVE); Methadone,Urine NEGATIVE (NEGATIVE); Opiate,Urine NEGATIVE (NEGATIVE); PCP,Urine NEGATIVE (NEGATIVE); THC,Urine NEGATIVE (NEGATIVE)
== END 2023-12-26 15:30 | disposition home or self-care (01) ==
LOC: ED 12:43
DX: N92.0 Excessive and frequent menstruation with regular cycle (principal); Z28.310 Unvaccinated for COVID-19
CPT/HCPCS: 36000; 36415; 80048; 80307; 81001; 84443; 84702; 85025; 87086; 99284